=== PATIENT | male | born 1965 | race African-American/Black ===

== ENCOUNTER 2016-06-04 10:32 | Inpatient (IN) | payer OTHER ==
[2016-06-04 11:14] VITALS: BMI 29.2
--- NOTE | 2016-06-04 12:57 | HP ---
CIWA Score - CIWA Score Nausea/Vomitin Muscle Tremors: 3 Anxiety: 4-Mod. Anxious/Guarded Agitation: 2 Paroxysmal Sweats: 4-Forehead w/Sweat Beads Orientation: 0-Oriented Tacttile Disturbances: 0-None Auditory Disturbances: 2-Mild Harshness/Frighten Visual Disturbances: 2-Mild Sensitivity Headache: 2-Mild CIWA-Ar Total Score: 22 Admission ROS [facility] - HPI Chief Complaint: "I am here to get my life back in order." Pt. here to Detox from Alcohol. Allergies/Adverse Reactions: Allergies Allergy/AdvReac Type Severity Reaction Status Date / Time shellfish derived Allergy Severe Swelling Verified 06/04/16 12:26 No Known Drug Allergies Allergy Verified 06/04/16 12:26 TOMATO SAUCE Allergy Itching Uncoded 06/04/16 12:26 History of Present Illness: Pt. is a 50 YO male here to Detox from Alcohol. Pt. has had several Detox admissions at [facility] in past. Pt. also uses Cocaine on an intermittent basis. Exam Limitations: No Limitations - Ebola screening Have you traveled outside of the country in the last 21 days: No Have you had contact with anyone from an Ebola affected area: No Have you been sick,other than usual withdrawal symptoms: No Do you have a fever: No - Review of Systems Constitutional: Diaphoresis, Malaise, Changes in sleep EENT: reports: No Symptoms Reported Respiratory: reports: SOB with Exertion Cardiac: reports: No Symptoms Reported GI: reports: Constipated, Nausea : reports: Frequency Musculoskeletal: reports: Back Pain, Joint Pain, Muscle Pain, Joint Stiffness Integumentary: reports: No Symptoms Reported Neuro: reports: Headache, Seizure (Due to Alcohol withdrawal - last one: June,.), Tremors Endocrine: reports: No Symptoms Reported Hematology: reports: Anemia Psychiatric: reports: Judgement Intact, Mood/Affect Appropiate, Orientated x3, Anxious, Depressed (Takes meds.) Other Systems: Reviewed and Negative Patient History - Patient Medical History Hx Anemia: Yes (No meds.) Hx Asthma: No Hx Chronic Obstructive Pulmonary Disease (COPD): No Hx Cancer: No Hx Cardiac Disorders: No Hx Congestive Heart Failure: No Hx Hypertension: No Hx Hypercholesterolemia: Yes (lipitor ) Hx Pacemaker: No HX Cerebrovascular Accident: No Hx Seizures: Yes (Due to Alcohol Withdrawal: last one: June,.) Hx Dementia: No Hx Diabetes: Yes (NIDDM; takes Metformin, No insulin.) Hx Gastrointestinal Disorders: No Hx Liver Disease: No Hx Genitourinary Disorders: No Hx Sexually Transmitted Disorders: No Hx Renal Disease (ESRD): No Hx Thyroid Disease: No Hx Human Immunodeficiency Virus (HIV): No (Last tested: 04/2016: NEGATIVE.) Hx Hepatitis C: No (Last tested: 04/2016: NEGATIVE.) Hx Depression: Yes (Takes meds.) Hx Suicide Attempt: No (PATIENT DENIES CURRENT SI / HI.) Hx Bipolar Disorder: No Hx Schizophrenia: Yes (schizoaffective disorder; takes meds.) - Patient Surgical History Past Surgical History: Yes Hx Neurologic Surgery: No Hx Cataract Extraction: No Hx Cardiac Surgery: No Hx Lung Surgery: No Hx Breast Surgery: No Hx Breast Biopsy: No Hx Abdominal Surgery: No Hx Appendectomy: No Hx Cholecystectomy: No Hx Genitourinary Surgery: No Hx Section: No Hx Orthopedic Surgery: No Other Surgical History: RIGHT INGUINAL HERNIA REPAIR IN 1985 Anesthesia Reaction: No - PPD History Previous Implant?: Yes Documented Results: Positive w/o proof Implanted On Prior [facility] Admission?: No Results: done-11/17/2015 PPD to be Administered?: No - Reproductive History Patient is a Female of Child Bearing Age (11 -55 yrs old): No (PATIENT IS MALE.) - Smoking Cessation Smoking history: Current every day smoker Have you smoked in the past 12 months: Yes Aproximately how many cigarettes per day: 10 Cigars Per Day: 0 Hx Chewing Tobacco Use: No Initiated information on smoking cessation: Yes 'Breaking Loose' booklet given: 06/04/16 (GIVEN ON UNIT.) - Substance & Tx. History Hx Alcohol Use: Yes Hx Substance Use: Yes Substance Use Type: Alcohol, Cocaine Hx Substance Use Treatment: Yes (Previous Detox admissions at [facility].) - Substances Abused Cocaine Route: Inhalation Frequency: 3-6 times per week Amount used: $60 Age of first use: 28 Date of Last Use: 06/03/16 Alcohol-vodka/beer Route: Oral Frequency: Daily Amount used: 1/2 pt./2-6 pks. Age of first use: 9 Date of Last Use: 06/04/16 Family Disease History - Family Disease History Family Disease History: Other: Father (addicted to heroin), Mother (addicted to heroin) Admission Physical Exam [facility] - Vital Signs Vital Signs: Vital Signs - 24 hr 06/04/16 11:10 Temperature 97.6 F Pulse Rate 75 Respiratory 18 Rate Blood Pressure 105/66 - Physical General Appearance: Yes: No Apparent Distress, Nourished, Appropriately Dressed , Tremorous, Sweating, Anxious HEENTM: Yes: Hearing grossly Normal, Normocephalic, Normal Voice, TINO, Pharynx Normal Respiratory: Yes: Chest Non-Tender, Lungs Clear, No Respiratory Distress Neck: Yes: No masses,lesions,Nodules, Supple, Trachea in good position Breast: Yes: Breast Exam Deferred Cardiology: Yes: Regular Rhythm, Regular Rate, S1, S2 Abdominal: Yes: Normal Bowel Sounds, Non Tender, Protuberent Genitourinary: Yes: Within Normal Limits Back: Yes: Decreased Range of Motion Musculoskeletal: Yes: Gait Steady, Back pain, Joint Stiffness, Muscle Pain Extremities: Yes: Tremors Neurological: Yes: Fully Oriented, Alert, Normal Mood/Affect, Normal Response Integumentary: Yes: Normal Color, Warm Lymphatic: Yes: Within Normal Limits - Diagnostic (1) Alcohol dependence with uncomplicated withdrawal Current Visit: Yes Status: Acute (2) Cocaine dependence Current Visit: Yes Status: Acute (3) Nicotine dependence Current Visit: Yes Status: Chronic Qualifiers: Nicotine product type: cigarettes Substance use status: uncomplicated Qualified Code(s): F17.210 - Nicotine dependence, cigarettes, uncomplicated (4) Chronic schizoaffective disorder Current Visit: Yes Status: Chronic (5) Constipation Current Visit: Yes Status: Chronic Qualifiers: Constipation type: unspecified constipation type Qualified Code(s): K59.00 - Constipation, unspecified (6) DM Diabetes mellitus type 2 Current Visit: Yes Status: Chronic (7) Hypercholesteremia Current Visit: Yes Status: Chronic (8) History of anemia Current Visit: Yes Status: Suspected (9) Seizure due to alcohol withdrawal Current Visit: Yes Status: Chronic Cleared for Admission [facility] - Detox or Rehab [facility] Level of Care: Medically Managed (ADVISED PATIENT TO FOLLOW-UP WITH SALES CLERK SUPERVISOR / REHAB MEDICAL PROVIDER AFTER DISCHARGE FROM DETOX FOR GENERAL MEDICAL ASSESSMENT.) Detox Regimen/Protocol: Librium [facility] Breath Alcohol Content Breath Alcohol Content: 0.087 Urine Drug Screen - Results Drug Screen Negative: No Urine Drug Screen Results: LEDA-Cocaine
[2016-06-04] MEDS ORDERED: hydrOXYzine PAMOATE 50 MG CAPSULE (FP) PO PRN (13:22)
[2016-06-04] MEDS ORDERED: IBUPROFEN 400 MG TABLET (FP) PO PRN (13:22)
[2016-06-04] MEDS ORDERED: LOPERAMIDE HCL 2 MG CAPSULE PO PRN (13:22)
[2016-06-04] MEDS ORDERED: P-EPHED 60MG/TRIPROLIDI 2.5MG TABLET PO PRN (13:22)
[2016-06-04] MEDS ORDERED: MAGNESIUM HYDROX 2400MG/30ML ORAL SUSPENSION 30 ML CUP PO PRN (13:22)
[2016-06-04] MEDS ORDERED: NICOTINE POLACRILEX 2 MG GUM BUC PRN (13:22)
[2016-06-04] MEDS ORDERED: MAG HYDROX/AL HYDROX/SIMETH 30 ML UNIT-DOSE CUP PO PRN (13:22)
[2016-06-04] MEDS ORDERED: chlordiazePOXIDE HCL 25 MG CAPSULE PO PRN (13:22)
[2016-06-04] MEDS ORDERED: MENTHOL/PHENOL 1 EACH UD MM PRN (13:22)
[2016-06-04] MEDS ORDERED: ACETAMINOPHEN 325 MG TABLET (FP) PO PRN (13:22)
[2016-06-04] MEDS ORDERED: guaiFENesin/D-METHORPHAN HB 10 ML UNIT-DOSE CUPS PO PRN (13:22)
[2016-06-04] MEDS ORDERED: MAGNESIUM CITRATE 300 ML BOTTLE PO PRN (13:22)
[2016-06-04] MEDS ORDERED: chlordiazePOXIDE HCL 25 MG CAPSULE PO ONE (14:08)
[2016-06-04] MEDS: NICOTINE 21 MG/24 HOURS TOPICAL PATCH TD SCH (14:31)
[2016-06-04] MEDS: metFORMIN HCL 500 MG TABLET (FP) PO SCH ×2 (14:35→17:55)
[2016-06-04 16:31] LABS: URINE APPEARANCE CLEAR; URINE BILIRUBIN NEGATIVE (NEGATIVE); URINE BLOOD NEGATIVE (NEGATIVE); URINE COLOR LTYELLOW; URINE GLUCOSE (UA) NEGATIVE (NEGATIVE); URINE KETONE NEGATIVE (NEGATIVE); URINE LEUK ESTERASE NEGATIVE (NEGATIVE); URINE NITRITE NEGATIVE (NEGATIVE); URINE PROTEIN NEGATIVE (NEGATIVE); URINE UROBILINOGEN NEGATIVE E.U./dl (0.2-1.0)
--- NOTE | 2016-06-04 16:41 | EKG ---
Test Reason : Blood Pressure : / mmHG Vent. Rate : 079 BPM Atrial Rate : 079 BPM P-R Int : 186 ms QRS Dur : 090 ms QT Int : 396 ms P-R-T Axes : 042 047 024 degrees QTc Int : 454 ms NORMAL SINUS RHYTHM NORMAL ECG NO PREVIOUS ECGS AVAILABLE Confirmed by MD MANUEL, IVÁN ([id number]) on 06/04/2016 4:41:14 PM Referred By: Confirmed By:IVÁN JACKSON MD
[2016-06-04] MEDS: chlordiazePOXIDE HCL 25 MG CAPSULE PO SCH ×2 (17:55→22:34)
[2016-06-04] MEDS: ATORVASTATIN CA 20 MG TABLET (FP) PO SCH (22:34)
[2016-06-04] MEDS: diphenhydrAMINE HCL 50 MG CAPSULE PO PRN (22:34)
[2016-06-04] MEDS: THIAMINE HCL 100 MG TABLET (FP) PO SCH (22:55)
[2016-06-05] MEDS: chlordiazePOXIDE HCL 25 MG CAPSULE PO SCH ×4 (06:10→22:08)
[2016-06-05] MEDS: metFORMIN HCL 500 MG TABLET (FP) PO SCH ×2 (06:11→16:50)
[2016-06-05] MEDS ORDERED: PSYLLIUM 5.85 GM PACKET PO SCH (10:00)
[2016-06-05 10:05] LABS: MCH 27.5 pg (25.7-33.7); MCHC 32.7 g/dl (32.0-35.9); MEAN CELL VOLUME 84.1 fl (80-96); MEAN PLT VOLUME 9.2 fl (7.5-11.1); PLATELET COUNT 254 K/MM3 (134-434); RDW 15.2 % (11.9-15.9)
[2016-06-05 10:17] LABS: ALBUMIN 4.3 g/dl (3.4-5.0); ANION GAP 14 (8-16); CALCIUM 9.1 mg/dL (8.5-10.1); CO2 27 mmol/L (21-32); GLUCOSE,RANDOM 84 mg/dL (74-106); SGOT/AST 32 U/L (15-37); SGPT/ALT 30 U/L (12-78)
[2016-06-05 10:18] LABS: ALK PHOS 82 U/L (45-117); BILIRUBIN,TOTAL 0.5 mg/dL (0.2-1.0); TOT PROT 7.8 g/dl (6.4-8.2)
[2016-06-05] MEDS: ASPIRIN COATED 81 MG TABLET.EC PO SCH (10:21)
[2016-06-05] MEDS: PRENATAL VITAMINS W/ FOLIC ACID TABLET (FP) PO SCH (10:21)
[2016-06-05] MEDS: NICOTINE 21 MG/24 HOURS TOPICAL PATCH TD SCH (10:21)
[2016-06-05] MEDS: PSYLLIUM 5.85 GM PACKET PO SCH (10:22)
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
--- NOTE | 2016-06-05 11:12 | PN ---
S CIWA - CIWA Score Nausea/Vomitin Muscle Tremors: 3 Anxiety: 3 Agitation: 3 Paroxysmal Sweats: 2 Orientation: 0-Oriented Tacttile Disturbances: 1-Very Mild Itch/Numbness Auditory Disturbances: 1-Very Mild Visual Disturbances: 0-None Headache: 2-Mild CIWA-Ar Total Score: 18 S Progress Note (SOAP) Subjective: shakes, sweats, irritability, anxiety and restlessness Objective: 06/05/16 11:10 Vital Signs 06/05/16 06/05/16 06/05/16 03:30 06:00 11:03 Temperature 98.2 F 98.1 F Pulse Rate 57 L 78 Respiratory 18 18 18 Rate Blood Pressure 101/64 106/65 Laboratory Last Values WBC 11.0 K/mm3 (4.0-10.0) H D 06/05/16 06:20 RBC 4.55 M/mm3 (4.00-5.60) 06/05/16 06:20 Hgb 12.5 GM/dL (11.7-16.9) 06/05/16 06:20 Hct 38.3 % (35.4-49) 06/05/16 06:20 MCV 84.1 fl (80-96) 06/05/16 06:20 MCHC 32.7 g/dl (32.0-35.9) 06/05/16 06:20 RDW 15.2 % (11.9-15.9) 06/05/16 06:20 Plt Count 254 K/MM3 (134-434) 06/05/16 06:20 MPV 9.2 fl (7.5-11.1) 06/05/16 06:20 Sodium 142 mmol/L (136-145) 06/05/16 06:20 Potassium 4.0 mmol/L (3.5-5.1) 06/05/16 06:20 Chloride 101 mmol/L (98-107) 06/05/16 06:20 Carbon Dioxide 27 mmol/L (21-32) 06/05/16 06:20 Anion Gap 14 (8-16) 06/05/16 06:20 BUN 12 mg/dL (7-18) 06/05/16 06:20 Creatinine 1.0 mg/dL (0.7-1.3) 06/05/16 06:20 Creat Clearance w eGFR > 60 (>60) 06/05/16 06:20 POC Glucometer 119 UNITS (()) 06/05/16 06:10 Random Glucose 84 mg/dL (74-106) D 06/05/16 06:20 Calcium 9.1 mg/dL (8.5-10.1) 06/05/16 06:20 Total Bilirubin 0.5 mg/dL (0.2-1.0) 06/05/16 06:20 AST 32 U/L (15-37) D 06/05/16 06:20 ALT 30 U/L (12-78) 06/05/16 06:20 Alkaline Phosphatase 82 U/L (45-117) 06/05/16 06:20 Total Protein 7.8 g/dl (6.4-8.2) 06/05/16 06:20 Albumin 4.3 g/dl (3.4-5.0) 06/05/16 06:20 Urine Color Ltyellow 06/04/16 14:00 Urine Appearance Clear 06/04/16 14:00 Urine pH 5.0 (5.0-8.0) 06/04/16 14:00 Ur Specific [place] 1.016 (1.001-1.035) 06/04/16 14:00 Urine Protein Negative (NEGATIVE) 06/04/16 14:00 Urine Glucose (UA) Negative (NEGATIVE) 06/04/16 14:00 Urine Ketones Negative (NEGATIVE) 06/04/16 14:00 Urine Blood Negative (NEGATIVE) 06/04/16 14:00 Urine Nitrite Negative (NEGATIVE) 06/04/16 14:00 Urine Bilirubin Negative (NEGATIVE) 06/04/16 14:00 Urine Urobilinogen Negative E.U./dl (0.2-1.0) 06/04/16 14:00 Ur Leukocyte Esterase Negative (NEGATIVE) 06/04/16 14:00 Hepatitis C Antibody 0.1 s/co ratio (0.0-0.9) 06/04/16 13:00 Labs noted, mild leukocytosis Assessment: 06/05/16 11:11 withdrawal sx Plan: continue detox, monitor for signs and symptoms of infection
[2016-06-05] MEDS: ATORVASTATIN CA 20 MG TABLET (FP) PO SCH (22:08)
[2016-06-05] MEDS: traZODone HCL 100 MG TABLET (FP) PO SCH (22:08)
[2016-06-05] MEDS: QUEtiapine FUMARATE 300 MG TABLET PO SCH (22:08)
[2016-06-05] MEDS: THIAMINE HCL 100 MG TABLET (FP) PO SCH (22:08)
[2016-06-05] MEDS: diphenhydrAMINE HCL 50 MG CAPSULE PO PRN (22:09)
[2016-06-06] MEDS: chlordiazePOXIDE HCL 25 MG CAPSULE PO SCH ×2 (07:14→10:30)
[2016-06-06] MEDS: metFORMIN HCL 500 MG TABLET (FP) PO SCH ×2 (07:15→17:06)
[2016-06-06] MEDS: PRENATAL VITAMINS W/ FOLIC ACID TABLET (FP) PO SCH (10:30)
[2016-06-06] MEDS: NICOTINE 21 MG/24 HOURS TOPICAL PATCH TD SCH (10:30)
[2016-06-06] MEDS: PSYLLIUM 5.85 GM PACKET PO SCH (10:30)
[2016-06-06] MEDS: ASPIRIN COATED 81 MG TABLET.EC PO SCH (10:30)
--- NOTE | 2016-06-06 10:55 | PN ---
[facility] CIWA - CIWA Score Nausea/Vomitin Muscle Tremors: 3 Anxiety: 3 Agitation: 4-Moderately Restless Paroxysmal Sweats: No Perspiration Orientation: 0-Oriented Tacttile Disturbances: 0-None Auditory Disturbances: 3-Moderate Harsh/Frighten Visual Disturbances: 0-None Headache: 1-Very Mild CIWA-Ar Total Score: 17 S Progress Note (SOAP) Subjective: Restlessness, Interrupted Sleep, Mild Body Aches, Reports sweats at night Objective: Vital Signs Temperature 97.9 F 06/06/16 10:00 Pulse Rate 89 06/06/16 10:00 Respiratory Rate 20 06/06/16 10:00 Blood Pressure 103/56 06/06/16 10:00 O2 Sat by Pulse Oximetry (%) Laboratory Last Values WBC 11.0 K/mm3 (4.0-10.0) H D 06/05/16 06:20 RBC 4.55 M/mm3 (4.00-5.60) 06/05/16 06:20 Hgb 12.5 GM/dL (11.7-16.9) 06/05/16 06:20 Hct 38.3 % (35.4-49) 06/05/16 06:20 MCV 84.1 fl (80-96) 06/05/16 06:20 MCHC 32.7 g/dl (32.0-35.9) 06/05/16 06:20 RDW 15.2 % (11.9-15.9) 06/05/16 06:20 Plt Count 254 K/MM3 (134-434) 06/05/16 06:20 MPV 9.2 fl (7.5-11.1) 06/05/16 06:20 Sodium 142 mmol/L (136-145) 06/05/16 06:20 Potassium 4.0 mmol/L (3.5-5.1) 06/05/16 06:20 Chloride 101 mmol/L (98-107) 06/05/16 06:20 Carbon Dioxide 27 mmol/L (21-32) 06/05/16 06:20 Anion Gap 14 (8-16) 06/05/16 06:20 BUN 12 mg/dL (7-18) 06/05/16 06:20 Creatinine 1.0 mg/dL (0.7-1.3) 06/05/16 06:20 Creat Clearance w eGFR > 60 (>60) 06/05/16 06:20 POC Glucometer 185 UNITS (()) 06/06/16 06:31 Random Glucose 84 mg/dL (74-106) D 06/05/16 06:20 Calcium 9.1 mg/dL (8.5-10.1) 06/05/16 06:20 Total Bilirubin 0.5 mg/dL (0.2-1.0) 06/05/16 06:20 AST 32 U/L (15-37) D 06/05/16 06:20 ALT 30 U/L (12-78) 06/05/16 06:20 Alkaline Phosphatase 82 U/L (45-117) 06/05/16 06:20 Total Protein 7.8 g/dl (6.4-8.2) 06/05/16 06:20 Albumin 4.3 g/dl (3.4-5.0) 06/05/16 06:20 Urine Color Ltyellow 06/04/16 14:00 Urine Appearance Clear 06/04/16 14:00 Urine pH 5.0 (5.0-8.0) 06/04/16 14:00 Ur Specific [place] 1.016 (1.001-1.035) 06/04/16 14:00 Urine Protein Negative (NEGATIVE) 06/04/16 14:00 Urine Glucose (UA) Negative (NEGATIVE) 06/04/16 14:00 Urine Ketones Negative (NEGATIVE) 06/04/16 14:00 Urine Blood Negative (NEGATIVE) 06/04/16 14:00 Urine Nitrite Negative (NEGATIVE) 06/04/16 14:00 Urine Bilirubin Negative (NEGATIVE) 06/04/16 14:00 Urine Urobilinogen Negative E.U./dl (0.2-1.0) 06/04/16 14:00 Ur Leukocyte Esterase Negative (NEGATIVE) 06/04/16 14:00 RPR Titer Nonreactive (NONREACTIVE) 06/05/16 06:20 Hepatitis C Antibody 0.1 s/co ratio (0.0-0.9) 06/04/16 13:00 labs noted Assessment: Withdrawal Symptoms Plan: Continue Detox
[2016-06-06] MEDS: chlordiazePOXIDE 5 MG CAPSULE PO SCH ×2 (17:07→22:13)
[2016-06-06] MEDS: THIAMINE HCL 100 MG TABLET (FP) PO SCH (22:13)
[2016-06-06] MEDS: QUEtiapine FUMARATE 300 MG TABLET PO SCH (22:13)
[2016-06-06] MEDS: traZODone HCL 100 MG TABLET (FP) PO SCH (22:13)
[2016-06-06] MEDS: ATORVASTATIN CA 20 MG TABLET (FP) PO SCH (22:13)
[2016-06-06] MEDS: diphenhydrAMINE HCL 50 MG CAPSULE PO PRN (22:14)
[2016-06-07] MEDS: chlordiazePOXIDE 5 MG CAPSULE PO SCH ×2 (05:35→10:37)
[2016-06-07] MEDS: metFORMIN HCL 500 MG TABLET (FP) PO SCH (07:34)
--- NOTE | 2016-06-07 09:26 | PN ---
[facility] Progress Note (SOAP) Subjective: feeling much better very little sweats Objective: 06/07/16 09:25 Vital Signs Temperature 98.6 F 06/07/16 06:53 Pulse Rate 69 06/07/16 06:53 Respiratory Rate 16 06/07/16 06:53 Blood Pressure 106/65 06/07/16 06:53 O2 Sat by Pulse Oximetry (%) awake/alert ambulating no acute distress Assessment: 06/07/16 09:25 withdrawal sx Plan: continue detox increase fluids d/c in am
[2016-06-07 10:21] VITALS: BP 110/68; PULSE 88; TEMP 98.1
[2016-06-07] MEDS: NICOTINE 21 MG/24 HOURS TOPICAL PATCH TD SCH (10:34)
[2016-06-07] MEDS: ASPIRIN COATED 81 MG TABLET.EC PO SCH (10:37)
[2016-06-07] MEDS: PRENATAL VITAMINS W/ FOLIC ACID TABLET (FP) PO SCH (10:37)
[2016-06-07] MEDS: PSYLLIUM 5.85 GM PACKET PO SCH (10:37)
--- NOTE | 2016-06-07 12:25 | DS ---
[facility] Detox Discharge Summary Admission Date: 06/04/16 Discharge Date: 06/07/16 - History Present History: Alcohol Dependence, Cocaine Dependence Pertinent Past History: type II DM Hypercholesterolemia - Physical Exam Results Vital Signs: Vital Signs Temperature 98.1 F 06/07/16 10:20 Pulse Rate 88 06/07/16 10:20 Respiratory Rate 16 06/07/16 10:20 Blood Pressure 110/68 06/07/16 10:20 O2 Sat by Pulse Oximetry (%) Pertinent Admission Physical Exam Findings: Withdrawal sx Laboratory Tests 06/04/16 06/04/16 06/04/16 12:52 13:00 14:00 WBC RBC Hgb Hct MCV MCHC RDW Plt Count MPV Sodium Potassium Chloride Carbon Dioxide Anion Gap BUN Creatinine Creat Clearance w eGFR POC Glucometer 151 Random Glucose Calcium Total Bilirubin AST ALT Alkaline Phosphatase Total Protein Albumin Urine Color Ltyellow Urine Appearance Clear Urine pH 5.0 Ur Specific [place] 1.016 Urine Protein Negative Urine Glucose (UA) Negative Urine Ketones Negative Urine Blood Negative Urine Nitrite Negative Urine Bilirubin Negative Urine Urobilinogen Negative Ur Leukocyte Esterase Negative RPR Titer Hepatitis C Antibody 0.1 06/05/16 06/05/16 06/05/16 06:10 06:20 06:20 WBC 11.0 H D RBC 4.55 Hgb 12.5 Hct 38.3 MCV 84.1 MCHC 32.7 RDW 15.2 Plt Count 254 MPV 9.2 Sodium 142 Potassium 4.0 Chloride 101 Carbon Dioxide 27 Anion Gap 14 BUN 12 Creatinine 1.0 Creat Clearance w eGFR > 60 POC Glucometer 119 Random Glucose 84 D Calcium 9.1 Total Bilirubin 0.5 AST 32 D ALT 30 Alkaline Phosphatase 82 Total Protein 7.8 Albumin 4.3 Urine Color Urine Appearance Urine pH Ur Specific [place] Urine Protein Urine Glucose (UA) Urine Ketones Urine Blood Urine Nitrite Urine Bilirubin Urine Urobilinogen Ur Leukocyte Esterase RPR Titer Hepatitis C Antibody 06/05/16 06/06/16 06/07/16 06:20 06:31 07:01 WBC RBC Hgb Hct MCV MCHC RDW Plt Count MPV Sodium Potassium Chloride Carbon Dioxide Anion Gap BUN Creatinine Creat Clearance w eGFR POC Glucometer 185 119 Random Glucose Calcium Total Bilirubin AST ALT Alkaline Phosphatase Total Protein Albumin Urine Color Urine Appearance Urine pH Ur Specific [place] Urine Protein Urine Glucose (UA) Urine Ketones Urine Blood Urine Nitrite Urine Bilirubin Urine Urobilinogen Ur Leukocyte Esterase RPR Titer Nonreactive Hepatitis C Antibody labs noted - Medication Discharge Medications: Ambulatory Orders Metformin HCl [Glucophage -] 500 mg PO BID 10/04/13 Psyllium [Metamucil (Sugar-Free) -] 2 tbs PO DAILY 08/11/14 Aspirin [Aspir-Low] 81 mg PO DAILY 05/01/15 Atorvastatin Ca [Lipitor] 20 mg PO HS 08/29/15 Quetiapine Fumarate [Seroquel] 300 mg PO HS #30 tablet 10/11/15 Trazodone HCl [Desyrel -] 100 mg PO HS #30 tablet 11/14/15 - Diagnosis (1) Alcohol dependence with uncomplicated withdrawal Status: Acute (2) Cocaine dependence Status: Acute (3) Nicotine dependence Status: Acute Qualifiers: Nicotine product type: cigarettes Substance use status: uncomplicated Qualified Code(s): F17.210 - Nicotine dependence, cigarettes, uncomplicated (4) DM Diabetes mellitus type 2 Status: Chronic (5) Hypercholesteremia Status: Chronic (6) Schizoaffective disorder Status: Chronic (7) PTSD (post-traumatic stress disorder) Status: Suspected - AMA Did Patient Leave Against Medical Advice: Yes
[2016-06-07] MEDS ORDERED: chlordiazePOXIDE HCL 10 MG CAPSULE PO SCH (17:00)
== END 2016-06-07 11:29 | disposition left against medical advice (07) | DRG 770 ==
LOC: YASAS 10:32 → Y6N 12:46
PROVIDERS: ADMIT Internal Medicine; ATTEND Internal Medicine
PROC: HZ2ZZZZ Detoxification Services for Substance Abuse Treatment (ICD-10-PCS; principal; 2016-06-07)
DX: F10.230 Alcohol dependence with withdrawal, uncomplicated (principal); F14.20 Cocaine dependence, uncomplicated; F17.210 Nicotine dependence, cigarettes, uncomplicated; F25.9 Schizoaffective disorder, unspecified; F43.10 Post-traumatic stress disorder, unspecified; G40.509 Epileptic seizures related to external causes, not intractable, without status epilepticus; E11.9 Type 2 diabetes mellitus without complications; Z79.84 Long term (current) use of oral hypoglycemic drugs; E78.00 Pure hypercholesterolemia, unspecified; K59.9 Functional intestinal disorder, unspecified; D64.9 Anemia, unspecified
CPT/HCPCS: 36415; 71020-TC; 80053; 81003; 85027; 86593; 93005; 93010

== ENCOUNTER 2019-02-20 13:23 | Inpatient (IN) | payer OTHER ==
[2019-02-20 14:26] VITALS: BMI 27.8
--- NOTE | 2019-02-20 15:37 | HP ---
CIWA Score Nausea/Vomitin Muscle Tremors: 4-Moderate,w/Arms Extend Anxiety: 3 Agitation: 4-Moderately Restless Paroxysmal Sweats: 5 Orientation: 0-Oriented Tacttile Disturbances: 0-None Auditory Disturbances: 0-None Visual Disturbances: 0-None Headache: 0-None Present CIWA-Ar Total Score: 21 - Admission Criteria OASAS Guidelines: Admission for Medically Managed Detox: Requires at least one of the followin. CIWA greater than 12 2. Seizures within the past 24 hours 3. Delirium tremens within the past 24 hours 4. Hallucinations within the past 24 hours 5. Acute intervention needed for co occurring medical disorder 6. Acute intervention needed for co occurring psychiatric disorder 7. Severe withdrawal that cannot be handled at a lower level of care (continued vomiting, continued diarrhea, abnormal vital signs) requiring intravenous medication and/or fluids 8. Admitting History and Physical - Admission History Source: Patient - Smoking History Smoking history: Current every day smoker Have you smoked in the past 12 months: Yes Aproximately how many cigarettes per day: 10 - Alcohol/Substance Use Hx Alcohol Use: Yes Admission ROS [facility] Chief Complaint: alcohol abuse Allergies/Adverse Reactions: Allergies Allergy/AdvReac Type Severity Reaction Status Date / Time shellfish derived Allergy Severe Swelling Verified 02/20/19 14:14 tomato Allergy Severe Itching Verified 02/20/19 14:14 No Known Drug Allergies Allergy Verified 02/20/19 14:14 History of Present Illness: 53 y.o. M PMH DM2, HLD, schizoaffective, depression presenting for detox. Has completed detox in the past. EtOH: Daily use. Drinks 1/2 pint vodks & 6 pack beer every day. Last drink 2AM, had 1/2 pint vodka & 6 pack 16-oz. beers. Starts drinking in the mornings around 9AM; started drinking at age 12. Has passed out from drinking a few times , never hit his head. Has had a seizure 3 yrs ago while drinking, worked up at the [facility]. Crack cocaine: sniffs. 3x/ week. Uses $50 in 1 sitting. Marijuana: started smoking 1 month ago. daily use. last use last night. Uses about $30 at one time. Cigarettes: daily use, 1/2 pack per day. Has been smoking since age 16. PSH: 1985 R hernia repair Social hx: not currently working, on SSI. Has a good family support system. Lives w/ roommate. All: NKDA/ allergic to shellfish & tomatoes Meds: metformin, lipitor, seroquel, prozac Patient endorses history of TB exposure; last chest x-ray a little over 1 year ago. Will order CXR during this visit. Exam Limitations: No Limitations - Ebola screening Have you traveled outside of the country in the last 21 days: No Have you had contact with anyone from an Ebola affected area: No Do you have a fever: No - Review of Systems Constitutional: Diaphoresis EENT: reports: No Symptoms Reported Respiratory: reports: No Symptoms reported Cardiac: reports: No Symptoms Reported GI: reports: Constipated Musculoskeletal: reports: No Symptoms Reported Integumentary: reports: No Symptoms Reported Neuro: reports: Tremors Endocrine: reports: No Symptoms Reported Hematology: reports: No Symptoms Reported Psychiatric: reports: Mood/Affect Appropiate, Orientated x3 Patient History - Patient Medical History Hx Anemia: Yes (No meds.) Hx Asthma: No Hx Chronic Obstructive Pulmonary Disease (COPD): No Hx Cancer: No Hx Cardiac Disorders: No Hx Congestive Heart Failure: No Hx Hypertension: No Hx Hypercholesterolemia: Yes (lipitor ) Hx Pacemaker: No HX Cerebrovascular Accident: No Hx Seizures: Yes (Due to Alcohol Withdrawal: last one: June,.) Hx Dementia: No Hx Diabetes: Yes (NIDDM; takes Metformin, No insulin.) Hx Gastrointestinal Disorders: No Hx Liver Disease: No Hx Genitourinary Disorders: No Hx Sexually Transmitted Disorders: No Hx Renal Disease (ESRD): No Hx Thyroid Disease: No Hx Human Immunodeficiency Virus (HIV): No (Last tested: 04/2016: NEGATIVE.) Hx Hepatitis C: No (Last tested: 04/2016: NEGATIVE.) Hx Depression: Yes (Takes meds.) Hx Suicide Attempt: No (PATIENT DENIES CURRENT SI / HI.) Hx Bipolar Disorder: No Hx Schizophrenia: Yes (schizoaffective disorder; takes meds.) - Patient Surgical History Past Surgical History: Yes Hx Neurologic Surgery: No Hx Cataract Extraction: No Hx Cardiac Surgery: No Hx Lung Surgery: No Hx Breast Surgery: No Hx Breast Biopsy: No Hx Abdominal Surgery: No Hx Appendectomy: No Hx Cholecystectomy: No Hx Genitourinary Surgery: No Hx Section: No Hx Orthopedic Surgery: No Other Surgical History: RIGHT INGUINAL HERNIA REPAIR IN 1985 Anesthesia Reaction: No - PPD History Results: done-11/17/2015 - Smoking Cessation Smoking history: Current every day smoker Have you smoked in the past 12 months: Yes Aproximately how many cigarettes per day: 10 Cigars Per Day: 0 Hx Chewing Tobacco Use: No Initiated information on smoking cessation: Yes 'Breaking Loose' booklet given: 02/20/19 - Substance & Tx. History Substance Use Type: Alcohol, Cocaine (crack) - Substances abused Alcohol Substance route: Oral Frequency: Daily Amount used: 2 PINTS VODKA & 6 BEERS (16OZ) Age of first use: 16 Date of last use: 02/20/19 Marijuana/Hashish Substance route: Smoking Frequency: Daily Amount used: $30 Age of first use: 17 Date of last use: 02/20/19 Cocaine Substance route: Inhalation Frequency: 3-6 times per week Amount used: $50 Age of first use: 21 Date of last use: 02/20/19 Admission Physical Exam [facility] - Vital Signs Vital Signs: Vital Signs - 24 hr 02/20/19 14:11 Temperature 97.3 F L Pulse Rate 80 Respiratory 18 Rate Blood Pressure 131/89 - Physical General Appearance: Yes: Tremorous, Anxious HEENTM: Yes: Normal ENT Inspection, Normocephalic, Normal Voice Respiratory: Yes: Lungs Clear, Normal Breath Sounds, No Respiratory Distress, No Accessory Muscle Use Neck: Yes: Within Normal Limits, No masses,lesions,Nodules Cardiology: Yes: Regular Rhythm, Regular Rate, S1, S2 Abdominal: Yes: Normal Bowel Sounds, Non Tender, Soft Musculoskeletal: Yes: Within Normal Limits Neurological: Yes: artificial teeth inspector II-XII NML intact, Fully Oriented, Alert, Normal Mood/ Affect Integumentary: Yes: Within Normal Limits Lymphatic: Yes: Within Normal Limits - Diagnostic (1) Alcohol dependence Current Visit: No Status: Chronic Cleared for Admission S - Detox or Rehab [facility] Level of Care: Medically Supervised Breathalyzer - Breathalyzer Breathalyzer: 0 Urine Drug Screen - Test Device Lot number: [id number] Expiration date: 10/08/20 - Control Is test valid?: Yes - Results Drug screen NEGATIVE: No Urine drug screen results: THC-Marijuana, LEDA-Cocaine, BZO-Benzodiazepines Inpatient Rehab Admission - Rehab Decision to Admit Inpatient rehab admission?: No
[2019-02-20] MEDS ORDERED: hydrOXYzine PAMOATE 25 MG CAPSULE (FP) PO PRN (15:48)
[2019-02-20] MEDS ORDERED: BISMUTH SUBSALICYLATE 524 MG/30 ML UD PO PRN (15:48)
[2019-02-20] MEDS ORDERED: METHOCARBAMOL 500 MG TABLET PO PRN (15:48)
[2019-02-20] MEDS ORDERED: ACETAMINOPHEN 325 MG TABLET (FP) PO PRN ×2 (15:48)
[2019-02-20] MEDS ORDERED: MAGNESIUM HYDROX 2400MG/30ML ORAL SUSPENSION 30 ML CUP PO PRN (15:48)
[2019-02-20] MEDS ORDERED: MAG HYDROX/AL HYDROX/SIMETH 30 ML UNIT-DOSE CUP PO PRN (15:48)
[2019-02-20] MEDS ORDERED: IBUPROFEN 400 MG TABLET (FP) PO PRN (15:48)
[2019-02-20] MEDS ORDERED: MENTHOL/PHENOL 1 EACH UD MM PRN (15:48)
[2019-02-20] MEDS ORDERED: MAGNESIUM CITRATE 300 ML BOTTLE PO PRN (15:48)
--- NOTE | 2019-02-20 15:50 | PN ---
Teaching Attending Note Name of Resident: Chrissie Castelan ATTENDING PHYSICIAN STATEMENT I saw and evaluated the patient. I reviewed the resident's note and discussed the case with the resident. I agree with the resident's findings and plan as documented. SUBJECTIVE: 53 y.o. male here request ing detox from etoh use , reports 6-pk beer and 1/2 pint vodka daily, latest use this morning 2 am , reports tremors if not drinking alcohol, starts drinking in the mornings,relapsed since 4 mo ago . [facility], seizure 3 yrs ago while drinking, taken to [facility]. cocaine : crack ,50 $ using 3 x/week . cannabis : daily since 1 mo ago , 30 $ tobacco : 1/2 ppd PMH DM2, HLD, schizoaffective d/o , depression , 1985 Right inguinal hernia repair OBJECTIVE: wnwd , mild UE tremors, anxious, agitated . CIWA-21 Vital Signs - 24 hr 02/20/19 14:11 Temperature 97.3 F L Pulse Rate 80 Respiratory 18 Rate Blood Pressure 131/89 ASSESSMENT AND PLAN: Alcohol use disorder - Librium detox Nicotine dependence - smoking cessation counseling . cannabis use disorder cocaine use , episodic CXR for h/o + exposure w/ INH tx .
[2019-02-20] MEDS: chlordiazePOXIDE HCL 10 MG CAPSULE PO PRN (17:23)
[2019-02-20] MEDS: metFORMIN HCL 500 MG TABLET (FP) PO SCH (17:23)
[2019-02-20] MEDS: chlordiazePOXIDE HCL 25 MG CAPSULE PO SCH (21:21)
[2019-02-20] MEDS: MELATONIN 5 MG TABLETS PO PRN (21:21)
[2019-02-20] MEDS: THIAMINE HCL 100 MG TABLET (FP) PO SCH (21:21)
[2019-02-20] MEDS: ATORVASTATIN CA 20 MG TABLET (FP) PO SCH (21:21)
[2019-02-21] MEDS: chlordiazePOXIDE HCL 10 MG CAPSULE PO PRN ×2 (01:53→09:41)
[2019-02-21] MEDS: chlordiazePOXIDE HCL 25 MG CAPSULE PO SCH ×3 (05:31→22:04)
[2019-02-21] MEDS: metFORMIN HCL 500 MG TABLET (FP) PO SCH ×2 (06:20→17:14)
[2019-02-21] MEDS ORDERED: diphenhydrAMINE HCL 50 MG CAPSULE PO PRN (09:12)
--- NOTE | 2019-02-21 09:18 | PN ---
S CIWA - CIWA Score Nausea/Vomitin-Mild Nausea/No Vomiting Muscle Tremors: 4-Moderate,w/Arms Extend Anxiety: 4-Mod. Anxious/Guarded Agitation: 3 Paroxysmal Sweats: 2 Orientation: 0-Oriented Tacttile Disturbances: 1-Very Mild Itch/Numbness Auditory Disturbances: 1-Very Mild Visual Disturbances: 0-None Headache: 0-None Present CIWA-Ar Total Score: 16 BHS Progress Note (SOAP) Subjective: 53 years old male admitted on 02/20/19 for alcohol withdrawal sx management treated with librium detox regimen long history of diabetes treated with metformin 1000mg po bid bgm once daily average 150 psychotropic medication of gabapentin seroquel prozac patient will be seen by psychiatrist today Objective: 02/21/19 09:17 Vital Signs Temperature 97.3 F L 02/21/19 09:15 Pulse Rate 65 02/21/19 09:15 Respiratory Rate 20 02/21/19 09:15 Blood Pressure 116/82 02/21/19 09:15 O2 Sat by Pulse Oximetry (%) Laboratory Last Values POC Glucometer 110 UNITS (80-120) 02/21/19 05:33 02/21/19 09:17 lab pending Assessment: 02/21/19 09:17 alcohol withdrawal sx Plan: continue librium detox regimen
[2019-02-21] MEDS: NAPROXEN 500 MG TABLET (FP) PO SCH (09:41)
[2019-02-21] MEDS: ASPIRIN 81 MG CHEWABLE TABLETS PO SCH (09:41)
[2019-02-21] MEDS: PRENATAL VITAMINS W/ FOLIC ACID TABLET (FP) PO SCH (09:41)
[2019-02-21] MEDS ORDERED: diphenhydrAMINE HCL 25 MG CAPSULE (FP) PO ONE (09:41)
[2019-02-21 09:44] LABS: HEMATOCRIT 39.8 % (35.4-49); MCH 27.9 pg (25.7-33.7); MCHC 32.6 g/dl (32.0-35.9); MEAN CELL VOLUME 85.7 fl (80-96); MEAN PLT VOLUME 9.4 fl (7.5-11.1); PLATELET COUNT 264 K/MM3 (134-434); RBC 4.65 M/mm3 (4.00-5.60); RDW 15.3 % (11.9-15.9); WHITE BLOOD COUNT 4.8 K/mm3 (4.0-10.0)
[2019-02-21 10:21] LABS: ALBUMIN 3.9 g/dl (3.4-5.0); BILIRUBIN,TOTAL 0.4 mg/dL (0.2-1); BLOOD UREA NITROGEN 8.2 mg/dL (7-18); CALCIUM 8.9 mg/dL (8.5-10.1); TOT PROT 7.5 g/dl (6.4-8.2)
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
[2019-02-21] MEDS: FLUoxetine HCL 20 MG CAPSULE (FP) PO SCH (13:37)
[2019-02-21] MEDS: GABAPENTIN 300 MG CAPSULE (FP) PO SCH ×2 (13:49→22:04)
[2019-02-21] MEDS ORDERED: QUEtiapine FUMARATE 100 MG TABLET (FP) ONE (20:44)
[2019-02-21] MEDS: ATORVASTATIN CA 20 MG TABLET (FP) PO SCH (22:04)
[2019-02-21] MEDS: QUEtiapine FUMARATE 300 MG TABLET PO SCH (22:05)
[2019-02-21] MEDS: THIAMINE HCL 100 MG TABLET (FP) PO SCH (22:05)
[2019-02-21] MEDS: MELATONIN 5 MG TABLETS PO PRN (22:06)
[2019-02-22] MEDS: GABAPENTIN 300 MG CAPSULE (FP) PO SCH ×3 (06:11→22:04)
[2019-02-22] MEDS: metFORMIN HCL 500 MG TABLET (FP) PO SCH ×2 (06:11→17:10)
[2019-02-22] MEDS: chlordiazePOXIDE 5 MG CAPSULE PO SCH ×3 (06:16→22:04)
[2019-02-22] MEDS: NAPROXEN 500 MG TABLET (FP) PO SCH (09:42)
[2019-02-22] MEDS: PRENATAL VITAMINS W/ FOLIC ACID TABLET (FP) PO SCH (09:42)
[2019-02-22] MEDS: ASPIRIN 81 MG CHEWABLE TABLETS PO SCH (09:42)
[2019-02-22] MEDS: FLUoxetine HCL 20 MG CAPSULE (FP) PO SCH (09:42)
--- NOTE | 2019-02-22 14:47 | EKG ---
Test Reason : Blood Pressure : / mmHG Vent. Rate : 064 BPM Atrial Rate : 064 BPM P-R Int : 202 ms QRS Dur : 084 ms QT Int : 380 ms P-R-T Axes : 048 046 017 degrees QTc Int : 392 ms NORMAL SINUS RHYTHM NORMAL ECG WHEN COMPARED WITH ECG OF 04-JUN-2016 14:19, QT HAS SHORTENED Confirmed by PHILLIP FAITH MD ([id number]) on 02/22/2019 2:47:34 PM Referred By: Confirmed By:PHILLIP FAITH MD
--- NOTE | 2019-02-22 15:44 | PN ---
[facility] CIWA - CIWA Score Nausea/Vomitin-Mild Nausea/No Vomiting Muscle Tremors: 3 Anxiety: 2 Agitation: 1-Slight > Activity Paroxysmal Sweats: 2 Orientation: 0-Oriented Tacttile Disturbances: 1-Very Mild Itch/Numbness Auditory Disturbances: 0-None Visual Disturbances: 0-None Headache: 1-Very Mild CIWA-Ar Total Score: 11 S Progress Note (SOAP) Subjective: 53 years old male admitted on 02/20/19 for alcohol withdrawal sx management treated with librium detox regimen patient is alert oriented x 3 speech clearly coherently feeling better today sleep better at night discuss aftercare with staff patient prefers to go to [facility] for alcohol rehab tomorrow multidisciplinary approach that counselor refer information to [facility] patient wants to go to rehab tomorrow patient is determines to maintain sober Objective: 02/22/19 15:49 Vital Signs Temperature 96.8 F L 02/22/19 13:08 Pulse Rate 71 02/22/19 13:08 Respiratory Rate 18 02/22/19 13:08 Blood Pressure 110/71 02/22/19 13:08 O2 Sat by Pulse Oximetry (%) Laboratory Last Values WBC 4.8 K/mm3 (4.0-10.0) 02/21/19 07:10 RBC 4.65 M/mm3 (4.00-5.60) 02/21/19 07:10 Hgb 13.0 GM/dL (11.7-16.9) 02/21/19 07:10 Hct 39.8 % (35.4-49) 02/21/19 07:10 MCV 85.7 fl (80-96) 02/21/19 07:10 MCH 27.9 pg (25.7-33.7) 02/21/19 07:10 MCHC 32.6 g/dl (32.0-35.9) 02/21/19 07:10 RDW 15.3 % (11.9-15.9) 02/21/19 07:10 Plt Count 264 K/MM3 (134-434) 02/21/19 07:10 MPV 9.4 fl (7.5-11.1) 02/21/19 07:10 Sodium 138 mmol/L (136-145) 02/21/19 07:10 Potassium 4.0 mmol/L (3.5-5.1) 02/21/19 07:10 Chloride 103 mmol/L (98-107) 02/21/19 07:10 Carbon Dioxide 29 mmol/L (21-32) 02/21/19 07:10 Anion Gap 6 MMOL/L (8-16) L 02/21/19 07:10 BUN 8.2 mg/dL (7-18) 02/21/19 07:10 Creatinine 1.0 mg/dL (0.55-1.3) 02/21/19 07:10 Est GFR (CKD-EPI)AfAm 99.15 02/21/19 07:10 Est GFR (CKD-EPI)NonAf 85.55 02/21/19 07:10 POC Glucometer 96 UNITS (80-120) 02/22/19 06:13 Random Glucose 114 mg/dL (74-106) H 02/21/19 07:10 Calcium 8.9 mg/dL (8.5-10.1) 02/21/19 07:10 Total Bilirubin 0.4 mg/dL (0.2-1) 02/21/19 07:10 AST 18 U/L (15-37) 02/21/19 07:10 ALT 30 U/L (13-61) 02/21/19 07:10 Alkaline Phosphatase 90 U/L (45-117) 02/21/19 07:10 Total Protein 7.5 g/dl (6.4-8.2) 02/21/19 07:10 Albumin 3.9 g/dl (3.4-5.0) 02/21/19 07:10 RPR Titer Nonreactive (NONREACTIVE) 02/21/19 07:10 HIV 1&2 Antibody Screen Negative 02/21/19 07:10 HIV P24 Antigen Negative 02/21/19 07:10 lab noted Assessment: 02/22/19 15:50 alcohol withdrawal sx Plan: continue librium detox regimen
[2019-02-22] MEDS ORDERED: QUEtiapine FUMARATE 100 MG TABLET (FP) ONE (21:13)
[2019-02-22] MEDS: ATORVASTATIN CA 20 MG TABLET (FP) PO SCH (22:04)
[2019-02-22] MEDS: THIAMINE HCL 100 MG TABLET (FP) PO SCH (22:04)
[2019-02-22] MEDS: QUEtiapine FUMARATE 300 MG TABLET PO SCH (22:04)
[2019-02-22] MEDS: MELATONIN 5 MG TABLETS PO PRN (22:05)
[2019-02-23] MEDS ORDERED: chlordiazePOXIDE HCL 10 MG CAPSULE PO PRN
[2019-02-23] MEDS ORDERED: chlordiazePOXIDE HCL 10 MG CAPSULE PO SCH (05:00)
[2019-02-23] MEDS: GABAPENTIN 300 MG CAPSULE (FP) PO SCH (05:09)
[2019-02-23] MEDS: metFORMIN HCL 500 MG TABLET (FP) PO SCH (07:37)
[2019-02-23 09:08] VITALS: BP 100/68; PULSE 89; TEMP 97.3
[2019-02-23] MEDS: PRENATAL VITAMINS W/ FOLIC ACID TABLET (FP) PO SCH (09:56)
[2019-02-23] MEDS: FLUoxetine HCL 20 MG CAPSULE (FP) PO SCH (09:56)
[2019-02-23] MEDS: NAPROXEN 500 MG TABLET (FP) PO SCH (09:56)
[2019-02-23] MEDS: ASPIRIN 81 MG CHEWABLE TABLETS PO SCH (09:56)
--- NOTE | 2019-02-23 10:13 | PN ---
[facility] CIWA - CIWA Score Nausea/Vomitin-No Nausea/No Vomiting Muscle Tremors: 1-None Visible, but [place] Anxiety: 1-Mildly Anxious Agitation: 1-Slight > Activity Paroxysmal Sweats: No Perspiration Orientation: 0-Oriented Tacttile Disturbances: 0-None Auditory Disturbances: 0-None Visual Disturbances: 0-None Headache: 0-None Present CIWA-Ar Total Score: 3 BHS Progress Note (SOAP) Subjective: alert,anxious,no complaint Objective: 02/23/19 10:12 Vital Signs Temperature 97.3 F L 02/23/19 09:07 Pulse Rate 89 02/23/19 09:07 Respiratory Rate 18 02/23/19 09:07 Blood Pressure 100/68 02/23/19 09:07 O2 Sat by Pulse Oximetry (%) Assessment: 02/23/19 10:12 detox completed,no withdrawal symptom Plan: discharge today,follow up with [facility]
--- NOTE | 2019-02-23 10:19 | DS ---
[facility] Detox Discharge Summary Admission Date: 02/20/19 Discharge Date: 02/23/19 - History Present History: Alcohol Dependence, Cannabis Dependence Additional Comments: follow up with [facility] rehab as arrangement Pertinent Past History: type 2 dm hypecholesterolemia hypertension - Physical Exam Results Vital Signs: Vital Signs Temperature 97.3 F L 02/23/19 09:07 Pulse Rate 89 02/23/19 09:07 Respiratory Rate 18 02/23/19 09:07 Blood Pressure 100/68 02/23/19 09:07 O2 Sat by Pulse Oximetry (%) Pertinent Admission Physical Exam Findings: Vital Signs Temperature 97.3 F L 02/23/19 09:07 Pulse Rate 89 02/23/19 09:07 Respiratory Rate 18 02/23/19 09:07 Blood Pressure 100/68 02/23/19 09:07 O2 Sat by Pulse Oximetry (%) Laboratory Last Values WBC 4.8 K/mm3 (4.0-10.0) 02/21/19 07:10 RBC 4.65 M/mm3 (4.00-5.60) 02/21/19 07:10 Hgb 13.0 GM/dL (11.7-16.9) 02/21/19 07:10 Hct 39.8 % (35.4-49) 02/21/19 07:10 MCV 85.7 fl (80-96) 02/21/19 07:10 MCH 27.9 pg (25.7-33.7) 02/21/19 07:10 MCHC 32.6 g/dl (32.0-35.9) 02/21/19 07:10 RDW 15.3 % (11.9-15.9) 02/21/19 07:10 Plt Count 264 K/MM3 (134-434) 02/21/19 07:10 MPV 9.4 fl (7.5-11.1) 02/21/19 07:10 Sodium 138 mmol/L (136-145) 02/21/19 07:10 Potassium 4.0 mmol/L (3.5-5.1) 02/21/19 07:10 Chloride 103 mmol/L (98-107) 02/21/19 07:10 Carbon Dioxide 29 mmol/L (21-32) 02/21/19 07:10 Anion Gap 6 MMOL/L (8-16) L 02/21/19 07:10 BUN 8.2 mg/dL (7-18) 02/21/19 07:10 Creatinine 1.0 mg/dL (0.55-1.3) 02/21/19 07:10 Est GFR (CKD-EPI)AfAm 99.15 02/21/19 07:10 Est GFR (CKD-EPI)NonAf 85.55 02/21/19 07:10 POC Glucometer 120 UNITS (80-120) 02/23/19 05:08 Random Glucose 114 mg/dL (74-106) H 02/21/19 07:10 Calcium 8.9 mg/dL (8.5-10.1) 02/21/19 07:10 Total Bilirubin 0.4 mg/dL (0.2-1) 02/21/19 07:10 AST 18 U/L (15-37) 02/21/19 07:10 ALT 30 U/L (13-61) 02/21/19 07:10 Alkaline Phosphatase 90 U/L (45-117) 02/21/19 07:10 Total Protein 7.5 g/dl (6.4-8.2) 02/21/19 07:10 Albumin 3.9 g/dl (3.4-5.0) 02/21/19 07:10 RPR Titer Nonreactive (NONREACTIVE) 02/21/19 07:10 HIV 1&2 Antibody Screen Negative 02/21/19 07:10 HIV P24 Antigen Negative 02/21/19 07:10 - Treatment Hospital Course: Detox Protocol Followed, Detoxed Safely, Responded well, Discharged Condition Good, Rehab Referral Accepted Patient has Accepted a Rehab Referral to: [facility] - Medication Discharge Medications: Ambulatory Orders Aspirin [ASA -] 81 mg PO DAILY 02/20/19 Atorvastatin Calcium 20 mg PO HS 02/20/19 Diphenhydramine HCl 50 mg PO Q6H PRN 02/20/19 Fluoxetine HCl [Prozac -] 20 mg PO DAILY 02/20/19 Gabapentin [Neurontin -] 300 mg PO Q8H 02/20/19 Metformin HCl [Glucophage] 1,000 mg PO BID 02/20/19 Naltrexone HCl [Revia -] 50 mg PO DAILY 02/20/19 Naproxen 500 mg PO DAILY 02/20/19 Quetiapine Fumarate [Seroquel -] 400 mg PO HS 02/20/19 - Diagnosis (1) Alcohol dependence with uncomplicated withdrawal Current Visit: Yes Status: Acute (2) Nicotine dependence Current Visit: Yes Status: Chronic Qualifiers: Nicotine product type: cigarettes Substance use status: uncomplicated Qualified Code(s): F17.210 - Nicotine dependence, cigarettes, uncomplicated (3) DM Diabetes mellitus type 2 Current Visit: No Status: Chronic (4) Hypercholesteremia Current Visit: No Status: Chronic (5) Hypertension Current Visit: Yes Status: Acute - AMA Did Patient Leave Against Medical Advice: No
[2019-02-24] MEDS ORDERED: chlordiazePOXIDE HCL 10 MG CAPSULE PO ONE (05:00)
== END 2019-02-23 10:12 | disposition home or self-care (01) | DRG 774 ==
LOC: YASAS 13:23 → Y3N 15:59
PROVIDERS: ADMIT Allergy & Immunology; ATTEND Allergy & Immunology
PROC: HZ2ZZZZ Detoxification Services for Substance Abuse Treatment (ICD-10-PCS; principal; 2019-02-20)
DX: F10.230 Alcohol dependence with withdrawal, uncomplicated (principal); F14.20 Cocaine dependence, uncomplicated; F12.20 Cannabis dependence, uncomplicated; F17.210 Nicotine dependence, cigarettes, uncomplicated; F25.9 Schizoaffective disorder, unspecified; F43.10 Post-traumatic stress disorder, unspecified; F32.9 Major depressive disorder, single episode, unspecified; G47.00 Insomnia, unspecified; D64.9 Anemia, unspecified; I10 Essential (primary) hypertension; E11.9 Type 2 diabetes mellitus without complications; Z79.84 Long term (current) use of oral hypoglycemic drugs; E78.00 Pure hypercholesterolemia, unspecified; Z86.69 Personal history of other diseases of the nervous system and sense organs; Z91.018 Allergy to other foods; Z88.8 Allergy status to other drugs, medicaments and biological substances
CPT/HCPCS: 36415; 71046-TC-FY; 80053; 82962; 85027; 86593; 87389; 93005; 93010

== ENCOUNTER 2020-03-12 11:10 | Inpatient (IN) | payer OTHER ==
[2020-03-12] MEDS ORDERED: MAG HYDROX/AL HYDROX/SIMETH 30 ML UNIT-DOSE CUP PO PRN (11:58)
[2020-03-12] MEDS ORDERED: MAGNESIUM HYDROX 2400MG/30ML ORAL SUSPENSION 30 ML CUP PO PRN (11:58)
[2020-03-12] MEDS ORDERED: MAGNESIUM CITRATE 300 ML BOTTLE PO PRN (11:58)
[2020-03-12] MEDS ORDERED: NICOTINE POLACRILEX 2 MG GUM BUC PRN (11:58)
[2020-03-12] MEDS ORDERED: MENTHOL/PHENOL 1 EACH UD MM PRN (11:58)
[2020-03-12] MEDS ORDERED: guaiFENesin 200 MG/10 ML 10 ML UNIT-DOSE CUPS PO PRN (11:58)
[2020-03-12] MEDS ORDERED: P-EPHED 60MG/TRIPROLIDI 2.5MG TABLET PO PRN (11:58)
[2020-03-12] MEDS ORDERED: ACETAMINOPHEN 325 MG TABLET (FP) PO PRN (11:58)
[2020-03-12] MEDS ORDERED: LOPERAMIDE HCL 2 MG CAPSULE PO PRN (11:58)
[2020-03-12] MEDS ORDERED: IBUPROFEN 400 MG TABLET (FP) PO PRN (11:58)
[2020-03-12] MEDS: metFORMIN HCL 500 MG TABLET (FP) PO SCH (16:39)
[2020-03-12] MEDS: THIAMINE HCL 100 MG TABLET (FP) PO SCH (21:06)
[2020-03-12] MEDS: hydrOXYzine PAMOATE 50 MG CAPSULE (FP) PO PRN (21:07)
[2020-03-12] MEDS: QUEtiapine FUMARATE 400 MG TABLET PO SCH (21:07)
[2020-03-12] MEDS: ATORVASTATIN CA 20 MG TABLET (FP) PO SCH (21:07)
[2020-03-12] MEDS: GABAPENTIN 300 MG CAPSULE PO SCH (21:08)
[2020-03-12] MEDS: NALTREXONE HCL 50 MG TABLET PO SCH (21:08)
[2020-03-12] MEDS ORDERED: MELATONIN 5 MG TABLETS PO SCH (22:00)
[2020-03-13] MEDS: metFORMIN HCL 500 MG TABLET (FP) PO SCH ×2 (06:15→16:39)
[2020-03-13] MEDS: GABAPENTIN 300 MG CAPSULE PO SCH ×3 (06:15→21:24)
[2020-03-13] MEDS ORDERED: NALTREXONE HCL 50 MG TABLET PO SCH (10:00)
[2020-03-13] MEDS: PRENATAL VITAMINS W/ FOLIC ACID TABLET (FP) PO SCH (10:20)
[2020-03-13] MEDS: FLUoxetine HCL 20 MG CAPSULE PO SCH (10:20)
[2020-03-13] MEDS: hydrOXYzine PAMOATE 50 MG CAPSULE (FP) PO PRN ×3 (10:20→21:24)
[2020-03-13] MEDS: NICOTINE 14 MG/24 HOURS TOPICAL PATCH TD SCH (10:20)
[2020-03-13] MEDS: ASPIRIN 81 MG CHEWABLE TABLETS PO SCH (10:20)
[2020-03-13] MEDS: NALTREXONE HCL 50 MG TABLET PO SCH (21:24)
[2020-03-13] MEDS: ATORVASTATIN CA 20 MG TABLET (FP) PO SCH (21:24)
[2020-03-13] MEDS: QUEtiapine FUMARATE 400 MG TABLET PO SCH (21:24)
[2020-03-13] MEDS: MELATONIN 5 MG TABLETS PO PRN (21:24)
[2020-03-13] MEDS: THIAMINE HCL 100 MG TABLET (FP) PO SCH (21:24)
[2020-03-14] MEDS: GABAPENTIN 300 MG CAPSULE PO SCH ×3 (06:31→21:08)
[2020-03-14] MEDS: metFORMIN HCL 500 MG TABLET (FP) PO SCH ×2 (07:00→16:32)
[2020-03-14] MEDS: hydrOXYzine PAMOATE 50 MG CAPSULE (FP) PO PRN ×2 (10:22→21:09)
[2020-03-14] MEDS: FLUoxetine HCL 20 MG CAPSULE PO SCH (10:22)
[2020-03-14] MEDS: PRENATAL VITAMINS W/ FOLIC ACID TABLET (FP) PO SCH (10:23)
[2020-03-14] MEDS: NICOTINE 14 MG/24 HOURS TOPICAL PATCH TD SCH (10:23)
[2020-03-14] MEDS: ASPIRIN 81 MG CHEWABLE TABLETS PO SCH (10:23)
[2020-03-14] MEDS ORDERED: PT OWN MED DRAWER 7, Y5N ONE (15:34)
[2020-03-14] MEDS: MELATONIN 5 MG TABLETS PO PRN (21:08)
[2020-03-14] MEDS: THIAMINE HCL 100 MG TABLET (FP) PO SCH (21:08)
[2020-03-14] MEDS: QUEtiapine FUMARATE 400 MG TABLET PO SCH (21:08)
[2020-03-14] MEDS: ATORVASTATIN CA 20 MG TABLET (FP) PO SCH (21:08)
[2020-03-14] MEDS: NALTREXONE HCL 50 MG TABLET PO SCH (21:08)
[2020-03-15] MEDS: GABAPENTIN 300 MG CAPSULE PO SCH (06:35)
[2020-03-15 07:23] VITALS: BP 92/66; PULSE 72; TEMP 98.1
[2020-03-15] MEDS: metFORMIN HCL 500 MG TABLET (FP) PO SCH (07:28)
== END 2020-03-15 09:35 | disposition home or self-care (01) | DRG 772 ==
LOC: YASAS 11:10 → Y3W 11:12
PROVIDERS: ADMIT Allergy & Immunology; ATTEND Allergy & Immunology
PROC: HZ42ZZZ Group Counseling for Substance Abuse Treatment, Cognitive-Behavioral (ICD-10-PCS; principal; 2020-03-12)
DX: F10.20 Alcohol dependence, uncomplicated (principal); F14.20 Cocaine dependence, uncomplicated; F17.210 Nicotine dependence, cigarettes, uncomplicated; F43.10 Post-traumatic stress disorder, unspecified; F25.9 Schizoaffective disorder, unspecified; E11.9 Type 2 diabetes mellitus without complications; G62.9 Polyneuropathy, unspecified; R76.11 Nonspecific reaction to tuberculin skin test without active tuberculosis; E78.00 Pure hypercholesterolemia, unspecified; Z86.69 Personal history of other diseases of the nervous system and sense organs; Z79.84 Long term (current) use of oral hypoglycemic drugs
CPT/HCPCS: 82962

== ENCOUNTER 2021-08-14 12:39 | Inpatient (IN) | payer OTHER ==
[2021-08-14] MEDS ORDERED: MAGNESIUM CITRATE 300 ML BOTTLE PO PRN (13:07)
[2021-08-14] MEDS ORDERED: MAG HYDROX/AL HYDROX/SIMETH 30 ML UNIT-DOSE CUP PO PRN (13:07)
[2021-08-14] MEDS ORDERED: ONDANSETRON *ODT* 4 MG TABLET SL PRN (13:07)
[2021-08-14] MEDS ORDERED: MAGNESIUM HYDROX 2400MG/30ML ORAL SUSPENSION 30 ML CUP PO PRN (13:07)
[2021-08-14] MEDS ORDERED: BENZOCAINE/MENTHOL (CHLORASEPTIC ) LOZENGE MM PRN (13:07)
[2021-08-14] MEDS ORDERED: DICYCLOMINE HCL 10 MG CAPSULE PO PRN (13:07)
[2021-08-14] MEDS ORDERED: chlordiazePOXIDE HCL 25 MG CAPSULE PO PRN (13:07)
[2021-08-14] MEDS ORDERED: BISMUTH SUBSALICYLATE 262 MG/15 ML BTL PO PRN (13:07)
[2021-08-14] MEDS ORDERED: ACETAMINOPHEN 325 MG TABLET (FP) PO PRN ×2 (13:07)
[2021-08-14] MEDS ORDERED: LOPERAMIDE HCL 2 MG CAPSULE PO PRN (13:07)
[2021-08-14] MEDS ORDERED: NICOTINE 10 MG CARTRIDGE (INHALER) IH PRN (13:07)
[2021-08-14 14:09] VITALS: BMI 27.8
[2021-08-14] MEDS: GABAPENTIN 300 MG CAPSULE PO SCH ×2 (16:02→22:01)
[2021-08-14] MEDS: PRENATAL VITAMINS W/ FOLIC ACID TABLET (FP) PO SCH (16:02)
[2021-08-14] MEDS: hydrOXYzine PAMOATE 25 MG CAPSULE (FP) PO SCH ×3 (16:02→22:03)
[2021-08-14 17:11] LABS: HEMATOCRIT 37.2 % (35.4-49); HEMOGLOBIN 12.3 GM/dL (11.7-16.9); MCH 27.2 pg (25.7-33.7); MCHC 33.1 g/dl (32.0-35.9); MEAN CELL VOLUME 82.1 fl (80-96); PLATELET COUNT 226 10^3/uL (134-434); RBC 4.53 M/mm3 (4.00-5.60); RDW 15.9 % (11.9-15.9); WHITE BLOOD COUNT 5.3 K/mm3 (4.0-10.0)
[2021-08-14 17:24] LABS: CALCIUM 9.4 mg/dL (8.5-10.1)
[2021-08-14 17:25] LABS: ALBUMIN 4.1 g/dl (3.4-5.0); BLOOD UREA NITROGEN 9.6 mg/dL (7-18)
[2021-08-14 17:27] LABS: CREATININE 1.2 mg/dL (0.55-1.3)
[2021-08-14 17:28] LABS: BILIRUBIN,TOTAL 0.7 mg/dL (0.2-1); TOT PROT 7.5 g/dl (6.4-8.2)
[2021-08-14] MEDS: metFORMIN HCL 500 MG TABLET (FP) PO SCH (18:12)
[2021-08-14] MEDS: chlordiazePOXIDE HCL 25 MG CAPSULE PO SCH ×2 (18:13→22:05)
[2021-08-14 19:11] LABS: HIV INTERPRETATION NEGATIVE (NEGATIVE)
[2021-08-14] MEDS ORDERED: NALTREXONE HCL 50 MG TABLET PO SCH (22:00)
[2021-08-14] MEDS: MELATONIN 5 MG TABLETS PO SCH (22:00)
[2021-08-14] MEDS: ATORVASTATIN CA 20 MG TABLET (FP) PO SCH (22:01)
[2021-08-14] MEDS: QUEtiapine FUMARATE 200 MG TABLET PO SCH (22:02)
[2021-08-14] MEDS: SENNOSIDES 8.6MG TABLET (FP) PO PRN (22:03)
[2021-08-14] MEDS: THIAMINE HCL 100 MG TABLET (FP) PO SCH (22:03)
[2021-08-15] MEDS: GABAPENTIN 300 MG CAPSULE PO SCH ×3 (06:28→22:11)
[2021-08-15] MEDS: metFORMIN HCL 500 MG TABLET (FP) PO SCH ×2 (06:43→17:36)
[2021-08-15] MEDS: chlordiazePOXIDE HCL 25 MG CAPSULE PO SCH ×4 (06:43→22:11)
[2021-08-15] MEDS: hydrOXYzine PAMOATE 25 MG CAPSULE (FP) PO SCH ×5 (06:48→22:11)
[2021-08-15] MEDS: ASPIRIN 81 MG CHEWABLE TABLETS PO SCH (10:12)
[2021-08-15] MEDS: FLUoxetine HCL 20 MG CAPSULE PO SCH (10:13)
[2021-08-15] MEDS: PRENATAL VITAMINS W/ FOLIC ACID TABLET (FP) PO SCH (10:13)
[2021-08-15] MEDS: NICOTINE 14 MG/24 HOURS TOPICAL PATCH TD SCH (10:13)
[2021-08-15] MEDS: QUEtiapine FUMARATE 200 MG TABLET PO SCH (22:10)
[2021-08-15] MEDS: THIAMINE HCL 100 MG TABLET (FP) PO SCH (22:10)
[2021-08-15] MEDS: SENNOSIDES 8.6MG TABLET (FP) PO PRN (22:10)
[2021-08-15] MEDS: MELATONIN 5 MG TABLETS PO SCH (22:10)
[2021-08-15] MEDS: ATORVASTATIN CA 20 MG TABLET (FP) PO SCH (22:11)
[2021-08-16] MEDS: GABAPENTIN 300 MG CAPSULE PO SCH ×3 (07:02→22:13)
[2021-08-16] MEDS: hydrOXYzine PAMOATE 25 MG CAPSULE (FP) PO SCH ×5 (07:02→22:13)
[2021-08-16] MEDS: chlordiazePOXIDE HCL 25 MG CAPSULE PO SCH ×4 (07:03→22:14)
[2021-08-16] MEDS: metFORMIN HCL 500 MG TABLET (FP) PO SCH ×2 (07:03→17:10)
[2021-08-16] MEDS: ASPIRIN 81 MG CHEWABLE TABLETS PO SCH (10:32)
[2021-08-16] MEDS: FLUoxetine HCL 20 MG CAPSULE PO SCH (10:32)
[2021-08-16] MEDS: PRENATAL VITAMINS W/ FOLIC ACID TABLET (FP) PO SCH (10:32)
[2021-08-16] MEDS: NICOTINE 14 MG/24 HOURS TOPICAL PATCH TD SCH (10:33)
[2021-08-16] MEDS: METHOCARBAMOL 500 MG TABLET PO PRN (11:30)
[2021-08-16] MEDS: IBUPROFEN 400 MG TABLET (FP) PO PRN (11:31)
[2021-08-16] MEDS: THIAMINE HCL 100 MG TABLET (FP) PO SCH (22:13)
[2021-08-16] MEDS: MELATONIN 5 MG TABLETS PO SCH (22:14)
[2021-08-16] MEDS: QUEtiapine FUMARATE 200 MG TABLET PO SCH (22:14)
[2021-08-16] MEDS: ATORVASTATIN CA 20 MG TABLET (FP) PO SCH (22:14)
[2021-08-16] MEDS: SENNOSIDES 8.6MG TABLET (FP) PO PRN (22:15)
[2021-08-17] MEDS ORDERED: chlordiazePOXIDE HCL 10 MG CAPSULE PO PRN
[2021-08-17] MEDS: chlordiazePOXIDE HCL 10 MG CAPSULE PO SCH ×4 (05:43→22:52)
[2021-08-17] MEDS: hydrOXYzine PAMOATE 25 MG CAPSULE (FP) PO SCH ×5 (05:44→22:49)
[2021-08-17] MEDS: GABAPENTIN 300 MG CAPSULE PO SCH ×3 (05:44→22:49)
[2021-08-17] MEDS: metFORMIN HCL 500 MG TABLET (FP) PO SCH ×2 (06:19→18:07)
[2021-08-17] MEDS: FLUoxetine HCL 20 MG CAPSULE PO SCH (10:16)
[2021-08-17] MEDS: PRENATAL VITAMINS W/ FOLIC ACID TABLET (FP) PO SCH (10:16)
[2021-08-17] MEDS: NICOTINE 14 MG/24 HOURS TOPICAL PATCH TD SCH (10:16)
[2021-08-17] MEDS: ASPIRIN 81 MG CHEWABLE TABLETS PO SCH (10:16)
[2021-08-17] MEDS: MELATONIN 5 MG TABLETS PO SCH (22:48)
[2021-08-17] MEDS: ATORVASTATIN CA 20 MG TABLET (FP) PO SCH (22:48)
[2021-08-17] MEDS: IBUPROFEN 400 MG TABLET (FP) PO PRN (22:48)
[2021-08-17] MEDS: METHOCARBAMOL 500 MG TABLET PO PRN (22:49)
[2021-08-17] MEDS: THIAMINE HCL 100 MG TABLET (FP) PO SCH (22:50)
[2021-08-17] MEDS: QUEtiapine FUMARATE 200 MG TABLET PO SCH (22:50)
[2021-08-18] MEDS: chlordiazePOXIDE HCL 10 MG CAPSULE PO SCH ×2 (06:57→18:07)
[2021-08-18] MEDS: GABAPENTIN 300 MG CAPSULE PO SCH ×3 (06:57→22:06)
[2021-08-18] MEDS: hydrOXYzine PAMOATE 25 MG CAPSULE (FP) PO SCH ×5 (06:58→22:05)
[2021-08-18] MEDS: metFORMIN HCL 500 MG TABLET (FP) PO SCH ×3 (07:00→18:05)
[2021-08-18] MEDS: FLUoxetine HCL 20 MG CAPSULE PO SCH (10:17)
[2021-08-18] MEDS: NICOTINE 14 MG/24 HOURS TOPICAL PATCH TD SCH (10:17)
[2021-08-18] MEDS: PRENATAL VITAMINS W/ FOLIC ACID TABLET (FP) PO SCH (10:17)
[2021-08-18] MEDS: ASPIRIN 81 MG CHEWABLE TABLETS PO SCH (10:17)
[2021-08-18] MEDS: MELATONIN 5 MG TABLETS PO SCH (22:05)
[2021-08-18] MEDS: THIAMINE HCL 100 MG TABLET (FP) PO SCH (22:05)
[2021-08-18] MEDS: ATORVASTATIN CA 20 MG TABLET (FP) PO SCH (22:05)
[2021-08-18] MEDS: QUEtiapine FUMARATE 200 MG TABLET PO SCH (22:05)
[2021-08-19] MEDS ORDERED: chlordiazePOXIDE HCL 10 MG CAPSULE PO ONE (05:00)
[2021-08-19] MEDS: hydrOXYzine PAMOATE 25 MG CAPSULE (FP) PO SCH ×2 (06:32→09:27)
[2021-08-19] MEDS: metFORMIN HCL 500 MG TABLET (FP) PO SCH (07:30)
[2021-08-19] MEDS: GABAPENTIN 300 MG CAPSULE PO SCH (07:30)
[2021-08-19 08:53] VITALS: BP 115/73; PULSE 83; TEMP 97.3
[2021-08-19] MEDS: FLUoxetine HCL 20 MG CAPSULE PO SCH (09:27)
[2021-08-19] MEDS: ASPIRIN 81 MG CHEWABLE TABLETS PO SCH (09:27)
[2021-08-19] MEDS: PRENATAL VITAMINS W/ FOLIC ACID TABLET (FP) PO SCH (09:28)
[2021-08-19] MEDS: NICOTINE 14 MG/24 HOURS TOPICAL PATCH TD SCH (09:28)
== END 2021-08-19 10:20 | disposition home or self-care (01) | DRG 774 ==
LOC: YASAS 12:39 → Y3N 14:08
PROVIDERS: ADMIT Allergy & Immunology; ATTEND Allergy & Immunology
PROC: HZ2ZZZZ Detoxification Services for Substance Abuse Treatment (ICD-10-PCS; principal; 2021-08-14)
DX: F10.230 Alcohol dependence with withdrawal, uncomplicated (principal); F14.20 Cocaine dependence, uncomplicated; F13.20 Sedative, hypnotic or anxiolytic dependence, uncomplicated; F12.20 Cannabis dependence, uncomplicated; F17.210 Nicotine dependence, cigarettes, uncomplicated; F25.9 Schizoaffective disorder, unspecified; F43.10 Post-traumatic stress disorder, unspecified; F19.282 Other psychoactive substance dependence with psychoactive substance-induced sleep disorder; E11.65 Type 2 diabetes mellitus with hyperglycemia; E78.00 Pure hypercholesterolemia, unspecified; K59.00 Constipation, unspecified; G47.00 Insomnia, unspecified; G62.9 Polyneuropathy, unspecified; Z86.69 Personal history of other diseases of the nervous system and sense organs; Z91.013 Allergy to seafood; Z79.84 Long term (current) use of oral hypoglycemic drugs; Z62.810 Personal history of physical and sexual abuse in childhood; Z56.0 Unemployment, unspecified
CPT/HCPCS: 36415; 80053; 82962; 85027; 86780; 87389; 87811; C9803-CS; Q0162; U0003; U0005

== ENCOUNTER 2024-04-07 08:14 | Inpatient (IN) | payer OTHER ==
[2024-04-07 09:29] VITALS: BMI 28.3
[2024-04-07] MEDS ORDERED: BENZONATATE 200 MG CAPSULE PO PRN (10:58)
[2024-04-07] MEDS ORDERED: ACETAMINOPHEN 325 MG TABLET (FP) PO PRN (10:58)
[2024-04-07] MEDS ORDERED: LORazepam 1 MG TABLET PO PRN (10:58)
[2024-04-07] MEDS ORDERED: MAG HYDROX/AL HYDROX/SIMETH 30 ML UNIT-DOSE CUP PO PRN (10:58)
[2024-04-07] MEDS ORDERED: POLYETHYLENE GLYCOL (HEALTHYLAX) 3350 17 GM PACKET PO PRN (10:58)
[2024-04-07] MEDS ORDERED: LOPERAMIDE HCL 2 MG CAPSULE PO PRN (10:58)
[2024-04-07] MEDS ORDERED: IBUPROFEN 600 MG TABLET (FP) PO PRN (10:58)
[2024-04-07] MEDS ORDERED: METHOCARBAMOL 500 MG TABLET PO PRN (10:58)
[2024-04-07] MEDS ORDERED: NALOXONE (NARCAN) HCL 4 MG/0.1 ML SPRAY NS PRN (10:58)
[2024-04-07] MEDS ORDERED: ONDANSETRON *ODT* 4 MG TABLET SL PRN (10:58)
[2024-04-07] MEDS ORDERED: NICOTINE POLACRILEX 2 MG LOZENGE BC PRN (10:58)
[2024-04-07] MEDS ORDERED: MAGNESIUM HYDROX 2400MG/30ML ORAL SUSPENSION 30 ML CUP PO PRN (10:58)
[2024-04-07] MEDS ORDERED: guaiFENesin 600 MG TABLET.ER (FP) PO PRN (10:58)
[2024-04-07] MEDS ORDERED: NICOTINE 14 MG/24 HOURS TOPICAL PATCH TD PRN (10:58)
[2024-04-07] MEDS ORDERED: BISMUTH SUBSALICYLATE 524 MG/30 ML PO PRN (10:58)
[2024-04-07] MEDS ORDERED: DICYCLOMINE HCL 10 MG CAPSULE PO PRN (10:58)
[2024-04-07] MEDS ORDERED: IBUPROFEN 400 MG TABLET (FP) PO PRN (10:58)
[2024-04-07] MEDS ORDERED: BENZOCAINE/MENTHOL (CHLORASEPTIC ) LOZENGE MM PRN (10:58)
[2024-04-07] MEDS: GABAPENTIN 100 MG CAPSULE PO SCH (14:55)
[2024-04-07] MEDS: metFORMIN HCL 500 MG TABLET (FP) PO SCH (17:30)
[2024-04-07] MEDS: LORazepam 2 MG TABLET PO SCH (17:31)
[2024-04-07] MEDS ORDERED: metFORMIN HCL 500 MG TABLET (FP) PO SCH (22:00)
[2024-04-07] MEDS: THIAMINE 100 MG TABLET PO SCH (22:14)
[2024-04-07] MEDS: SENNOSIDES 8.6MG TABLET (FP) PO SCH (22:15)
[2024-04-07] MEDS: MELATONIN 5 MG TABLETS PO SCH (22:15)
[2024-04-07] MEDS: QUEtiapine FUMARATE 100 MG TABLET (FP) PO SCH (22:15)
[2024-04-07] MEDS: ATORVASTATIN CA 10 MG TABLET (FP) PO SCH (22:15)
[2024-04-08 08:47] LABS: CHLORIDE 106 mmol/L (98-107); SODIUM 139 mmol/L (136-145)
[2024-04-08 08:50] LABS: ALBUMIN 3.3 g/dl (3.4-5.0); ANION GAP 2 mmol/L (4-13); BLOOD UREA NITROGEN 9.2 mg/dL (7-18); CALCIUM 8.9 mg/dL (8.5-10.1); CO2 32 mmol/L (21-32)
[2024-04-08 08:51] LABS: GLUCOSE,RANDOM 135 mg/dL (74-106)
[2024-04-08 08:53] LABS: HEMATOCRIT 36.5 % (35.4-49); HEMOGLOBIN 12.2 GM/dL (11.7-16.9); MCH 28.1 pg (25.7-33.7); MCHC 33.4 g/dl (32.0-35.9); PLATELET COUNT 180 10^3/uL (134-434); RBC 4.34 M/mm3 (4.00-5.60); RDW 14.7 % (11.9-15.9); SGOT/AST 11 U/L (15-37); SGPT/ALT 19 U/L (13-61); WHITE BLOOD COUNT 4.8 K/mm3 (4.0-10.0)
[2024-04-08 08:55] LABS: BILIRUBIN,TOTAL 0.4 mg/dL (0.2-1); TOT PROT 6.5 g/dl (6.4-8.2)
[2024-04-08 08:56] LABS: ALK PHOS 83 U/L (45-117)
[2024-04-08] MEDS: EMTRICITABINE 200MG/TENOFOVIR 300MG PO SCH ×2 (10:21→13:34)
[2024-04-08] MEDS: PRENATAL VITAMINS W/ FOLIC ACID TABLET (FP) PO SCH (10:22)
[2024-04-08] MEDS: FLUoxetine HCL 20 MG CAPSULE PO SCH (10:22)
[2024-04-09] MEDS: LORazepam 1 MG TABLET PO SCH (05:55)
[2024-04-09] MEDS: GABAPENTIN 300 MG CAPSULE PO SCH (13:10)
[2024-04-09] MEDS: QUEtiapine FUMARATE 300 MG TABLET PO SCH (21:24)
[2024-04-09] MEDS ORDERED: QUEtiapine FUMARATE 400 MG TABLET PO SCH (22:00)
[2024-04-10] MEDS ORDERED: LORazepam 0.5 MG TABLET PO PRN
[2024-04-10] MEDS: LORazepam 0.5 MG TABLET PO SCH (05:28)
[2024-04-10] MEDS: FLUoxetine HCL 20 MG CAPSULE PO SCH (10:07)
[2024-04-10] MEDS: ACAMPROSATE CALCIUM 333 MG TABLET.DR PO SCH (13:16)
[2024-04-10] MEDS ORDERED: QUEtiapine FUMARATE 100 MG TABLET (FP) ONE (21:13)
[2024-04-11] MEDS: LORazepam 0.5 MG TABLET PO ONE (05:05)
[2024-04-11] MEDS: NALOXONE (NYS OPIOID OVERDOSE PROGRAM) 4 MG/0.1 ML SPRAY NS SCH (09:00)
[2024-04-11 12:32] VITALS: BP 104/61; PULSE 60; RESP 17; TEMP 96.9
== END 2024-04-11 13:49 | disposition other institution (70) | DRG 774 ==
LOC: YASAS 08:14 → Y3N 11:10
PROVIDERS: ADMIT Allergy & Immunology; ATTEND Surgery
PROC: HZ2ZZZZ Detoxification Services for Substance Abuse Treatment (ICD-10-PCS; principal; 2024-04-07)
DX: F10.230 Alcohol dependence with withdrawal, uncomplicated (principal); F14.20 Cocaine dependence, uncomplicated; F17.210 Nicotine dependence, cigarettes, uncomplicated; F19.24 Other psychoactive substance dependence with psychoactive substance-induced mood disorder; Z21 Asymptomatic human immunodeficiency virus [HIV] infection status; G62.9 Polyneuropathy, unspecified; E11.9 Type 2 diabetes mellitus without complications; Z79.84 Long term (current) use of oral hypoglycemic drugs; E78.00 Pure hypercholesterolemia, unspecified; Z86.69 Personal history of other diseases of the nervous system and sense organs; Z59.01 Sheltered homelessness; Z79.899 Other long term (current) drug therapy
CPT/HCPCS: 36415; 71046-TC-FY; 80053; 80305; 80307; 82962; 85027; 86780; 93005; 93010

== ENCOUNTER 2024-04-11 14:46 | Inpatient (IN) | payer OTHER ==
[2024-04-11] MEDS ORDERED: MAGNESIUM HYDROX 2400MG/30ML ORAL SUSPENSION 30 ML CUP PO PRN (20:00)
[2024-04-11] MEDS ORDERED: IBUPROFEN 400 MG TABLET (FP) PO PRN (20:00)
[2024-04-11] MEDS ORDERED: guaiFENesin 600 MG TABLET.ER (FP) PO PRN (20:00)
[2024-04-11] MEDS ORDERED: IBUPROFEN 600 MG TABLET (FP) PO PRN (20:00)
[2024-04-11] MEDS ORDERED: hydrOXYzine PAMOATE 25 MG CAPSULE (FP) PO PRN (20:00)
[2024-04-11] MEDS ORDERED: MAG HYDROX/AL HYDROX/SIMETH 30 ML UNIT-DOSE CUP PO PRN (20:00)
[2024-04-11] MEDS ORDERED: LOPERAMIDE HCL 2 MG CAPSULE PO PRN (20:00)
[2024-04-11] MEDS ORDERED: NALOXONE HCL 0.4 MG/ML VIAL IVPUSH PRN (20:00)
[2024-04-11] MEDS ORDERED: BENZOCAINE/MENTHOL (CHLORASEPTIC ) LOZENGE MM PRN (20:00)
[2024-04-11] MEDS ORDERED: BENZONATATE 200 MG CAPSULE PO PRN (20:00)
[2024-04-11] MEDS ORDERED: NALOXONE (NARCAN) HCL 4 MG/0.1 ML SPRAY NS PRN (20:00)
[2024-04-11] MEDS ORDERED: ACETAMINOPHEN 325 MG TABLET (FP) PO PRN (20:00)
[2024-04-11] MEDS ORDERED: POLYETHYLENE GLYCOL (HEALTHYLAX) 3350 17 GM PACKET PO PRN (20:00)
[2024-04-11] MEDS: MELATONIN 5 MG TABLETS PO SCH (22:02)
[2024-04-11] MEDS: THIAMINE 100 MG TABLET PO SCH (22:03)
[2024-04-11] MEDS: METHOCARBAMOL 500 MG TABLET PO PRN (22:03)
[2024-04-11] MEDS: GABAPENTIN 300 MG CAPSULE PO SCH ×2 (22:03→22:07)
[2024-04-11] MEDS: ATORVASTATIN CA 20 MG TABLET (FP) PO SCH (22:04)
[2024-04-11] MEDS: QUEtiapine FUMARATE 400 MG TABLET PO SCH (22:04)
[2024-04-12] MEDS: metFORMIN HCL 500 MG TABLET (FP) PO SCH (06:00)
[2024-04-12] MEDS: PRENATAL VITAMINS W/ FOLIC ACID TABLET (FP) PO SCH (09:19)
[2024-04-12] MEDS: ASPIRIN 81 MG CHEWABLE TABLETS PO SCH (09:19)
[2024-04-12] MEDS: FLUoxetine HCL 20 MG CAPSULE PO SCH (09:19)
[2024-04-12] MEDS: EMTRICITABINE 200MG/TENOFOVIR 300MG PO SCH (09:20)
[2024-04-13 06:36] VITALS: TEMP 97.5
[2024-04-13 09:29] VITALS: RESP 17
[2024-04-13] MEDS: SENNOSIDES 8.6MG TABLET (FP) PO SCH (21:31)
[2024-04-13] MEDS: BACLOFEN 10 MG TABLET (FP) PO SCH (21:32)
[2024-04-13] MEDS: NALTREXONE HCL 50 MG TABLET PO ONE (21:33)
[2024-04-14 06:10] VITALS: BP 101/64; PULSE 71
[2024-04-14] MEDS: NALTREXONE HCL 50 MG TABLET PO SCH (09:41)
[2024-04-14] MEDS: NALOXONE (NYS OPIOID OVERDOSE PROGRAM) 4 MG/0.1 ML SPRAY NS SCH (11:21)
== END 2024-04-14 11:28 | disposition left against medical advice (07) | DRG 770 ==
LOC: YASAS 14:46 → Y3NR 14:49 → Y3W 04-12 10:00
PROVIDERS: ADMIT Psychiatry & Neurology Pain Medicine; ATTEND Psychiatry & Neurology Pain Medicine
PROC: HZ42ZZZ Group Counseling for Substance Abuse Treatment, Cognitive-Behavioral (ICD-10-PCS; principal; 2024-04-11)
DX: F10.20 Alcohol dependence, uncomplicated (principal); F14.20 Cocaine dependence, uncomplicated; F17.210 Nicotine dependence, cigarettes, uncomplicated; F25.9 Schizoaffective disorder, unspecified; E11.9 Type 2 diabetes mellitus without complications; Z79.84 Long term (current) use of oral hypoglycemic drugs; K59.00 Constipation, unspecified
CPT/HCPCS: 36415; 82962; 86803; 87811; J0475